=== PATIENT | female | born 1990 | race Hispanic/Latino ===

== ENCOUNTER 2019-02-08 13:56 | Emergency (ER) | payer BC, OTHER ==
--- NOTE | 2019-02-08 15:18 | ER ---
Nurse's Notes [facility] Name: Christine Neal Age: 28 yrs Sex: Female : 1990 Arrival Date: 02/08/2019 Time: 14:01 Bed Treatment Private MD: Diagnosis: Insect bite (nonvenomous) of lower leg Presentation: 02/08 14:10 Presenting complaint: Patient states: I felt something on my leg bite my and I have a la1 little spot there now. Transition of care: patient was not received from another setting of care. Onset of symptoms was February 08, 2019. Risk Assessment: Do you want to hurt yourself or someone else? Patient reports no desire to harm self or others. Initial Sepsis Screen: Does the patient meet any 2 criteria? No. Patient's initial sepsis screen is negative. Does the patient have a suspected source of infection? No. Patient's initial sepsis screen is negative. Care prior to arrival: None. 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 - Social history:: Smoking status: Patient/guardian denies using tobacco. - Ebola Screening: : No symptoms or risks identified at this time. Screenin:40 Abuse screen: Denies threats or abuse. Nutritional screening: No deficits noted. la1 Tuberculosis screening: No symptoms or risk factors identified. Fall Risk None identified. Assessment: 14:40 General: Appears in no apparent distress. Behavior is calm, cooperative. Pain: la1 Complains of pain in lateral aspect of left calf. Neuro: Level of Consciousness is awake, alert, obeys commands, Oriented to person, place, time, situation. Cardiovascular: Capillary refill < 3 seconds Patient's skin is warm and dry. Derm: Skin is healthy with good turgor, Skin is pink, warm \T\ dry. Rash noted that is red, raised, on lateral aspect of left calf. Vital Signs: 14:11 BP 125 / 65; Pulse 84; Resp 16; Temp 97.4; Pulse Ox 98% on R/A; Weight 47.63 kg; Height la1 5 ft. 4 in. (162.56 cm); 14:11 Body Mass Index 18.02 (47.63 kg, 162.56 cm) la1 ED Course: 14:01 Patient arrived in ED. mr 14:10 Triage completed. la1 14:11 Masha Lynne FNP-C is [facility]. snw 14:11 Dwayne Monzon MD is Attending Physician. snw 14:11 Arm band placed on left wrist. la1 14:25 Mackenzie Diaz, RN is Primary Nurse. iw 14:40 Call light in reach. la1 14:40 No provider procedures requiring assistance completed. Patient did not have IV access la1 during this emergency room visit. Administered Medications: No medications were administered Outcome: 15:17 Discharge ordered by . snw 15:29 Discharged to home ambulatory. la1 15:29 Condition: stable 15:29 Discharge instructions given to patient, Instructed on discharge instructions, follow up and referral plans. medication usage, Demonstrated understanding of instructions, follow-up care, medications, Prescriptions given X 1. 15:30 Patient left the ED. la1 Signatures: Masha Lynne FNP-C FNP-Garret Teto Kirsten Mackenzie Diaz, RN RN Honorio Razo RN RN la1
--- NOTE | 2019-02-08 15:18 | EDPHYS ---
Physician Documentation [facility] Name: Christine Neal Age: 28 yrs Sex: Female : 1990 Arrival Date: 02/08/2019 Time: 14:01 Bed Treatment Private MD: ED Physician Dwayne Monzon HPI: 02/08 19:06 This 28 yrs old Female presents to ER via Ambulatory with complaints of Insect snw Bite, 18 wks . 19:06 Onset: The symptoms/episode began/occurred noted today. The patient has not experienced snw similar symptoms in the past. It is unknown whether or not the patient has recently seen a physician. 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 - Social history:: Smoking status: Patient/guardian denies using tobacco. - Ebola Screening: : No symptoms or risks identified at this time. ROS: 19:05 Constitutional: Negative for fever, chills, and weight loss, Eyes: Negative for injury, snw pain, redness, and discharge, ENT: Negative for injury, pain, and discharge, Neck: Negative for injury, pain, and swelling, Cardiovascular: Negative for chest pain, palpitations, and edema, Respiratory: Negative for shortness of breath, cough, wheezing, and pleuritic chest pain, Abdomen/GI: Negative for abdominal pain, nausea, vomiting, diarrhea, and constipation, Back: Negative for injury and pain, : Negative for injury, bleeding, discharge, and swelling, MS/Extremity: Negative for injury and deformity, Neuro: Negative for headache, weakness, numbness, tingling, and seizure, Psych: Negative for depression, anxiety, suicide ideation, homicidal ideation, and hallucinations. 19:05 Skin: Positive for puncture, of the lateral aspect of left calf. Exam: 19:01 Head/Face: Normocephalic, atraumatic. Eyes: Pupils equal round and reactive to light, snw extra-ocular motions intact. Lids and lashes normal. Conjunctiva and sclera are non-icteric and not injected. Cornea within normal limits. Periorbital areas with no swelling, redness, or edema. ENT: Nares patent. No nasal discharge, no septal abnormalities noted. Tympanic membranes are normal and external auditory canals are clear. Oropharynx with no redness, swelling, or masses, exudates, or evidence of obstruction, uvula midline. Mucous membranes moist. Neck: Trachea midline, no thyromegaly or masses palpated, and no cervical lymphadenopathy. Supple, full range of motion without nuchal rigidity, or vertebral point tenderness. No Meningismus. Chest/axilla: Normal chest wall appearance and motion. Nontender with no deformity. No lesions are appreciated. Cardiovascular: Regular rate and rhythm with a normal S1 and S2. No gallops, murmurs, or rubs. Normal PMI, no JVD. No pulse deficits. Respiratory: Lungs have equal breath sounds bilaterally, clear to auscultation and percussion. No rales, rhonchi or wheezes noted. No increased work of breathing, no retractions or nasal flaring. Abdomen/GI: Soft, non-tender, with normal bowel sounds. No distension or tympany. No guarding or rebound. No evidence of tenderness throughout. Back: No spinal tenderness. No costovertebral tenderness. Full range of motion. MS/ Extremity: Pulses equal, no cyanosis. Neurovascular intact. Full, normal range of motion. Neuro: Awake and alert, GCS 15, oriented to person, place, time, and situation. Cranial nerves II-XII grossly intact. Motor strength 5/5 in all extremities. Sensory grossly intact. Cerebellar exam normal. Normal gait. Psych: Awake, alert, with orientation to person, place and time. Behavior, mood, and affect are within normal limits. 19:01 Constitutional: The patient appears awake, cachectic pt, in no acute distress 19:01 Skin: Appearance: normal except for affected area, lesion(s), papule with central puncture with tiny amount of minimal surrounding erythema. Vital Signs: 14:11 BP 125 / 65; Pulse 84; Resp 16; Temp 97.4; Pulse Ox 98% on R/A; Weight 47.63 kg; Height la1 5 ft. 4 in. (162.56 cm); 14:11 Body Mass Index 18.02 (47.63 kg, 162.56 cm) la1 MDM: 15:10 Patient medically screened. snw 19:04 Data reviewed: vital signs, nurses notes. Data interpreted: Pulse oximetry: on room air snw is 98 %. Interpretation: normal. Counseling: I had a detailed discussion with the patient and/or guardian regarding: the historical points, exam findings, and any diagnostic results supporting the discharge/admit diagnosis, the need for outpatient follow up, to return to the emergency department if symptoms worsen or persist or if there are any questions or concerns that arise at home. Special discussion: Based on the history and exam findings, there is no indication for further emergent testing or inpatient evaluation. I discussed with the patient/guardian the need to see the OB Gyne specialist for further evaluation of the symptoms. I discussed with the patient/guardian the need to see the primary care provider for further evaluation of the symptoms. Administered Medications: No medications were administered Disposition: 02/08/19 15:17 Discharged to Home. Impression: Insect bite (nonvenomous) of lower leg. - Condition is Stable. - Discharge Instructions: Insect Bite, Iron-Rich Diet. - Prescriptions for Benadryl 25 mg Oral Capsule - take 1 capsule by ORAL route every 6 hours As needed; 30 tablet. - Medication Reconciliation Form, Thank You Letter, Antibiotic Education, Prescription Opioid Use form. - Follow up: Private Physician; When: 2 - 3 days; Reason: Recheck today's complaints, Continuance of care, Re-evaluation by your physician. Follow up: Emergency Department; When: As needed; Reason: Worsening of condition. Addendum: 02/10/2019 08:01 Co-signature as Attending Physician, Dwayne Monzon MD I agree with the assessment and k dr plan of care. Signatures: Dwayne Monzon MD MD [facility] Masha Lynne, RN TELE-C RN TELE-Efrenw Honorio Razo RN RN la1 Corrections: (The following items were deleted from the chart) 02/08 15:30 15:17 02/08/2019 15:17 Discharged to Home. Impression: Insect bite (nonvenomous) of la1 lower leg. Condition is Stable. Forms are Medication Reconciliation Form, Thank You Letter, Antibiotic Education, Prescription Opioid Use. Follow up: Private Physician; When: 2 - 3 days; Reason: Recheck today's complaints, Continuance of care, Re-evaluation by your physician. Follow up: Emergency Department; When: As needed; Reason: Worsening of condition. snw
== END 2019-02-08 15:30 | disposition home or self-care (01) ==
LOC: ER 13:56
DX: O26.892 Other specified pregnancy related conditions, second trimester (principal); S80.862A Insect bite (nonvenomous), left lower leg, initial encounter; Z3A.18 18 weeks gestation of pregnancy
CPT/HCPCS: 99282

== ENCOUNTER 2020-08-01 17:07 | Emergency (ER) | payer BC, OTHER, SELFPAY ==
--- OUTSIDE RECORDS SUMMARY | 2020-08-01 17:09 | XMS REPORT | Continuity of Care Document ---
:1990 Author Organization [facility] t Address [address] [place] [address] Care Team Providers Name Role Phone Girma Guerrier MD Attending Clinician Problems This patient has no known problems. Allergies, Adverse Reactions, Alerts This patient has no known allergies or adverse reactions. Medications This patient has no known medications. Procedures This patient has no known procedures. Encounters Start End Encounter Admission Attending Care Care Encounter Source Date/Time Date/Time Type Type Clinicians Facility Department ID 2020-03-31 2020-03-31 Case Lilliam Guerrier [id number] 00:00:00 00:00:00 Management Girma Zhao [id number] [place] [id number] [facility] [phone] [address] 2020-03-31 2020-03-31 Telephone Lilliam Guerrier [id number] 00:00:00 00:00:00 Cam [place] [id number] [place] [id number] [facility] [phone] [address] 2020-03-01 2020-03-01 Refill Lilliam Guerrier [id number] 00:00:00 00:00:00 [place] [id number] [place] [id number] [facility] [phone] [address] 2019-09-29 2019-09-29 Office Lilliam Guerrier [id number] 14:49:31 16:06:50 Visit Girma Zhao [id number] [place] [id number] [facility] [phone] [facility] [address] Results This patient has no known results.
[2020-08-01] MEDS ORDERED: CYCLOBENZAPRINE 10 MG TAB ONE (18:46)
[2020-08-01] MEDS ORDERED: IBUPROFEN 400 MG TAB ONE (18:46)
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
[2020-08-02 02:16] VITALS: BP 130/72; TEMP 98.5; O2SAT 100
== END 2020-08-01 20:20 | disposition home or self-care (01) ==
LOC: ER 17:07
DX: S29.012A Strain of muscle and tendon of back wall of thorax, initial encounter (principal); V49.40XA Driver injured in collision with unspecified motor vehicles in traffic accident, initial encounter
CPT/HCPCS: 99282